=== PATIENT | male | born 1955 | race Caucasian/White ===

== ENCOUNTER 2017-08-23 12:12 | Emergency (ER) | payer OTHER ==
[~2017-08-23] VITALS: Ht 167.6 cm; Wt 77.1 kg
--- NOTE | ~2017-08-23 | EKG ---
[place], [place] ELECTROCARDIOGRAM REPORT NAME: DRU MCGRATH UNIT #: [id number] ROOM: DOCTOR: NAHED ESCOBAR,BISHOP BIRTHDATE: [birth year] DOS: 08/23/2017 TIME: 1216 hours. IMPRESSION: 1. Sinus rhythm. 2. Left atrial enlargement. 3. Low voltage complexes. 4. Normal QT interval. BISHOP DOCKERY MD CM:EKGRPT:ELECTROCARDIOGRAM REPORT [id number] BISHOP DOCKERY MD
[~2017-08-23 12:12] MED LIST: ACCUPRIL20 MG PO; CORDROL20 MG PO; DESYREL DIVIDO300 MG PO; EFFEXOR75 MG PO; FLEXERIL10 MG PO; HYDROCODONE BIT1 T11 PO; LIBRIUM10 MG PO; NEURONTIN800 MG PO
[2017-08-23 12:34] LABS: BASO % 0.2 % (0.0-1.0); EOS # 0.2 10*3/uL (0.0-0.4); HEMATOCRIT 42.2 % (42.0-52.0); HEMOGLOBIN 14.5 g/dl (14.0-18.0); LYMPH # 2.3 10*3/uL (1.3-4.4); LYMPH % 15.6 % (27.0-41.0); MEAN CELL VOLUME 92.7 fl (80.0-94.0); MEAN CORPUSCULAR HGB 31.9 pg (27.0-31.0); MEAN CORPUSCULAR HGB CONC 34.4 g/dl (33.0-37.0); MEAN PLATELET VOLUME 8.9 fl (9.6-12.3); MONO % 6.4 % (3.0-9.0); NEUT # 11.3 10*3/uL (2.3-7.9); NEUT % 76.3 % (47.0-73.0); PLATELET COUNT AUTOMATED 309 10*3/uL (130-400); RED BLOOD COUNT 4.55 10*6/uL (4.50-5.90); RED CELL DISTRI WIDTH 12.5 % (0-14.5); WHITE BLOOD COUNT 14.8 10*3/uL (4.8-10.8)
[2017-08-23 12:51] LABS: ALBUMIN 3.4 gm/dl (3.1-4.5); ALKALINE PHOSPHATASE 251 U/L (45-117); BUN 10 mg/dl (7-24); CHLORIDE 100 mmol/L (98-107); CREATININE 0.75 mg/dL (0.70-1.30); POTASSIUM 3.7 mmol/L (3.5-5.1); SGOT/AST 32 IU/L (3-35); SGPT/ALT 21 U/L (12-78); SODIUM 135 mmol/L (136-145); TOTAL PROTEIN 8.3 gm/dL (6.4-8.2)
[2017-08-23 12:54] LABS: TROPONIN I < 0.015 ng/ml (<0.045)
[2017-08-23 14:04] LABS: ACT PARTIAL THROMBO TIME 24.6 SECONDS (20.8-31.5); INTERNATIONAL NORM RATIO 0.9 (2.0-3.5)
[2017-08-23 18:00] VITALS: BP 152/89
== END 2017-08-23 18:44 | disposition short-term general hospital (02) ==
LOC: ED 12:12
PROVIDERS: Emergency Medicine
DX: R91.8 Other nonspecific abnormal finding of lung field (principal); Z88.0 Allergy status to penicillin